=== PATIENT | female | born 1950 | race Caucasian/White ===

== ENCOUNTER 2022-03-21 13:35 | Emergency (ER) | payer OTHER ==
[~2022-03-21] VITALS: Ht 165.1 cm; Wt 65.8 kg
--- NOTE | 2022-03-21 13:50 | NUR ---
[id number] from home, s/p fall c/o left hip pain, fentanyl 100 mcg given on scene 8/10 pain scale. placed on bed, aaox4, in pain 10/10 when moving as verbalized.
--- NOTE | 2022-03-21 14:18 | NUR ---
SWAB FOR COVID19 SENT TO LAB
[2022-03-21] MEDS ORDERED: ASPI-1420 PO (14:25)
[2022-03-21] MEDS ORDERED: ATOR40TA PO (14:25)
[2022-03-21] MEDS ORDERED: LOSA25TA27 PO (14:25)
[2022-03-21] MEDS ORDERED: FURO20TA4 PO (14:25)
[2022-03-21] MEDS ORDERED: FLUT1BLS15 INH (14:25)
[2022-03-21 14:36] LABS: BASOPHILS # (AUTO) 0.1 K/uL (0.0-0.2); BASOPHILS % (AUTO) 0.5 % (0.0-2.0); EOSINOPHILS % (AUTO) 1.2 % (0.0-6.0); HEMATOCRIT 37 % (33-45); HEMOGLOBIN 12.5 g/dL (11.5-14.8); LYMPHOCYTES # (AUTO) 1.3 K/uL (0.8-4.8); LYMPHOCYTES % (AUTO) 11.6 % (20.0-44.0); MEAN CORPUSCULAR HGB CONC 34 g/dl (31.0-36.0); MEAN CORPUSCULAR VOLUME 94 fL (82-100); MONOCYTES # (AUTO) 0.5 K/uL (0.1-1.30); MONOCYTES % (AUTO) 4.3 % (2.0-12.0); NEUTROPHILS # (AUTO) 9.3 K/uL (1.8-8.9); NEUTROPHILS % (AUTO) 82.4 % (43.0-81.0); PLATELET COUNT (AUTO) 207 K/uL (150-450); RED BLOOD CELL COUNT(AUTO) 3.91 MIL/uL (4.0-5.2); WHITE BLOOD COUNT (AUTO) 11.2 K/uL (4.3-11.0)
--- NOTE | 2022-03-21 14:45 | NUR ---
X-RAY TECH. AT BED SIDE
--- NOTE | 2022-03-21 15:00 | NUR ---
MOVE SHEET SUBMITTED.
[2022-03-21 15:05] LABS: CALCIUM, SERUM 9.1 mg/dL (8.5-10.1); CREATININE 0.6 mg/dL (0.6-1.3); POTASSIUM 4.1 mmol/L (3.5-5.1)
[2022-03-21] MEDS ORDERED: ALBU18HF2 INH (16:01)
--- NOTE | 2022-03-21 16:55 | NUR ---
DR. SAMANIEGO SPEAKING WITH DR. TAYLOR.
[2022-03-21] MEDS ORDERED: ONDANSETRON HCL/PF 4 MG/2 ML VIAL IV ONE (17:00)
[2022-03-21] MEDS ORDERED: IV NS 0.9% 1,000 ML IV ONE (17:00)
[2022-03-21] MEDS ORDERED: MORPHINE SULFATE INJ 2 MG/ML DISP.SYRIN IV ONE ×2 (17:00→19:30)
[2022-03-21] MEDS ORDERED: MORPHINE SULFATE INJ 4 MG/ML DISP.SYRIN ONE ×2 (17:01→20:01)
[2022-03-21] MEDS ORDERED: ONDANSETRON HCL/PF 4 MG/2 ML VIAL ONE (17:01)
--- NOTE | 2022-03-21 17:14 | NUR ---
PATIENT WENT FOR CT HEAD VIA [facility]
--- NOTE | 2022-03-21 17:49 | NUR ---
[facility] CATH. FR16 INSITU DRAINING TO CLEAR YELLOW COLOR URINE OUTPUT
[2022-03-21] MEDS ORDERED: ACETAMINOPHEN 325 MG TABLET PO PRN (19:00)
[2022-03-21] MEDS ORDERED: ONDANSETRON HCL/PF 4 MG/2 ML VIAL IVP PRN (19:00)
[2022-03-21] MEDS ORDERED: HYDROCODONE/APAP 5/325MG TABLET PO PRN (19:00)
[2022-03-21] MEDS ORDERED: MAG HYDROX/AL HYDROX/SIMETH 30 ML UDC PO PRN (19:00)
[2022-03-21] MEDS ORDERED: ENOXAPARIN SODIUM 40 MG/0.4 ML DISP.SYRIN SQ SCH (19:00)
[2022-03-21] MEDS ORDERED: IV NS 0.9% 1,000 ML IV PRN (19:00)
[2022-03-21] MEDS ORDERED: ALBUTEROL SULFATE 8 GM HFA.AER.AD IH PRN (19:00)
[2022-03-21] MEDS ORDERED: HYDROCODONE/APAP 10/325MG TABLET PO PRN (19:00)
[2022-03-21] MEDS ORDERED: MORPHINE SULFATE INJ 2 MG/ML DISP.SYRIN IV PRN (19:00)
[2022-03-21] MEDS ORDERED: Z GUARD REMEDY 4 OZ OINT TP PRN (19:00)
[2022-03-21] MEDS ORDERED: MAGNESIUM HYDROXIDE 30 ML UDC PO PRN (19:00)
[2022-03-21] MEDS ORDERED: ZOLPIDEM TARTRATE 5 MG TABLET PO PRN (19:00)
[2022-03-21 19:53] LABS: MAGNESIUM 1.3 mg/dL (1.8-2.4); PHOSPHORUS 3.6 mg/dL (2.5-4.9)
--- NOTE | 2022-03-21 19:56 | NUR ---
TO INFORM DAUGHTER ANDREW URIAH AT [phone] IF THERE IS A DEVELOPEMENT WITH REGARDS TO TRANSFER.
--- NOTE | 2022-03-21 21:01 | NUR ---
TRANSFER TO [facility] ROOM [id number] REPORT [phone] [facility] ETA 0030
--- NOTE | 2022-03-21 21:10 | NUR ---
REPORT GIVEN TO MILENA INMAN AT [facility] [phone]
--- NOTE | 2022-03-21 21:20 | NUR ---
DAUGHTER, ANDREW [phone]
[2022-03-21] MEDS ORDERED: ATORVASTATIN 40 MG TABLET PO SCH (22:00)
[2022-03-21 22:47] LABS: THYROID STIMULATING HORMONE 3.9 uIU/mL (0.358-3.74)
[2022-03-22] MEDS ORDERED: MORPHINE SULFATE INJ 4 MG/ML DISP.SYRIN ONE (02:33)
[2022-03-22] MEDS ORDERED: METOPROLOL TARTRATE INJ 5 MG/5 ML AMPUL ONE (02:47)
[2022-03-22] MEDS ORDERED: METOPROLOL TARTRATE INJ 5 MG/5 ML AMPUL IV ONE (03:00)
[2022-03-22] MEDS ORDERED: MORPHINE SULFATE INJ 2 MG/ML DISP.SYRIN IV ONE (03:00)
[2022-03-22 03:11] VITALS: BP 136/73
--- NOTE | 2022-03-22 03:14 | NUR ---
PATIENT WAS TRANSFERRED TO [facility] IN STABLE CONDITION
[2022-03-22] MEDS ORDERED: PANTOPRAZOLE 40 MG TABLET.DR PO SCH (07:30)
[2022-03-22] MEDS ORDERED: ASPIRIN EC 81 MG TABLET.DR PO SCH (09:00)
[2022-03-22] MEDS ORDERED: FLUTICASONE/SALMETEROL 1 DISK IH SCH (09:00)
[2022-03-22] MEDS ORDERED: LOSARTAN POTASSIUM 25 MG TABLET PO SCH (09:00)
== END 2022-03-22 03:16 | disposition short-term general hospital (02) ==
LOC: ER 13:37
DX: S72.142A Displaced intertrochanteric fracture of left femur, initial encounter for closed fracture (principal); W10.8XXA Fall (on) (from) other stairs and steps, initial encounter; Y92.89 Other specified places as the place of occurrence of the external cause; Z20.822 Contact with and (suspected) exposure to COVID-19; E87.1 Hypo-osmolality and hyponatremia; I11.0 Hypertensive heart disease with heart failure; I50.9 Heart failure, unspecified; I25.10 Atherosclerotic heart disease of native coronary artery without angina pectoris; E78.5 Hyperlipidemia, unspecified; J44.9 Chronic obstructive pulmonary disease, unspecified; Z87.891 Personal history of nicotine dependence; Z79.899 Other long term (current) drug therapy; Z79.82 Long term (current) use of aspirin
CPT/HCPCS: 36415; 51701; 70450; 71045; 73501; 73700; 80048; 83735; 84100; 84439; 84443; 85025; 85730; 87081; 87426; 93005; 93307; 96361; 96372 ×2; 96374; 96375; 96376 ×2; 99285; J2270 ×3; J2405; J3490; 73020; C9803; G0168